=== PATIENT | female | born 1940 | race Caucasian/White ===

== ENCOUNTER → 2016-12-22 | Outpatient (CLI) | payer OTHER, MEDICARE ==
[~2016-12-22] MED LIST: ASPI1TAB83 PO; CALC600T9 PO; CALC625T PO; CIPR0.3S; EST1 PO; MULTTAB58 PO; NAPR220T40 PO; PRED1SUS3; PRED1SUS3 OPR
--- NOTE | 2016-12-22 13:22 | MAMMOGRAPHY REPORT ---
BILATERAL DIGITAL SCREENING MAMMOGRAM WITH CAD: 12/22/2016 CLINICAL HISTORY: Routine screening. Patient has no complaints. TECHNIQUE: Current study was also evaluated with a Computer Aided Detection (CAD) system. Bilateral CC and MLO views were obtained. COMPARISON: Comparison is made to exams dated: 12/21/2015 mammogram, 10/27/2013 mammogram, 10/24/2012 mamm ogram, 10/24/2011 mammogram, 10/20/2010 mammogram, and 10/19/2009 mammogram - [facility]. BREAST COMPOSITION: There are scattered areas of fibroglandular density in both breasts. FINDINGS: No suspicious masses, calcifications, or areas of architectural distortion are noted in ei ther breast. There has been no significant interval change compared to prior exams. A linear scar ma rker denotes a scar on the right upper outer breast. Architectural distortion in the right upper out er quadrant is stable and felt to represent postsurgical changes. A linear scar marker also denotes a scar on the left superior breast. A biopsy marker clip is again seen within the left upper outer q uadrant. Scattered bilateral benign-appearing calcifications are not significantly changed. IMPRESSION: ACR BI-RADS CATEGORY 2: BENIGN There is no mammographic evidence of malignancy. A 1 year screening mammogram is recommended. The pa tient will receive written notification of the results. Approximately 10% of breast cancers are not detected with mammography. A negative mammographic report should not delay biopsy if a clinically suggestive mass is present. Rosa Rome M.D. /:12/22/2016 12:38:06 [employer] Dyer: Nancy ARAMBULA(Reginald)(Amina), [facility] letter sent: Normal 1/2 BI-RADS Code: ACR BI-RADS Category 2: Benign
== END | disposition home or self-care (01) ==
LOC: C.MAMM 09:01
PROVIDERS: ATTEND Family Medicine
DX: Z12.31 Encounter for screening mammogram for malignant neoplasm of breast (principal)

== ENCOUNTER → 2017-09-26 | Outpatient (CLI) | payer OTHER, MEDICARE ==
--- NOTE | 2017-09-26 15:08 | MAMMOGRAPHY REPORT ---
UNILATERAL RIGHT DIGITAL DIAGNOSTIC MAMMOGRAM TOMOSYNTHESIS AND TARGETED RIGHT ULTRASOUND: 09/26/2017 CLINICAL HISTORY: 77-year-old woman with multiple prior benign right breast surgeries presents with a n area of thickening and pain in the right upper outer quadrant posteriorly. TECHNIQUE: Right breast CC and MLO 2D and tomosynthesis images; spot compression tomosynthesis right CC and MLO; right CC and MLO tomosynthesis images obtained after placement of a skin BB marker. COMPARISON: Comparison is made to exams dated: 11/26/2013 mammogram, 11/26/2013 ultrasound, 06/01/2014 ma mmogram, 06/01/2014 ultrasound, 12/14/2014 mammogram, and 12/14/2014 ultrasound - [facility]. BREAST COMPOSITION: The tissue of the right breast is heterogeneously dense, which may obscure small masses. FINDINGS: A linear scar marker overlies the upper outer middle one third of the right breast, denotin g areas of prior surgery. A triangular palpable marker overlies the superior posterior right breast on the MLO view, denoting the area of thickening and pain pointed out by the patient. There are a fe w morphologically normal lymph nodes projecting over the right pectoralis muscle in the area of palpa ble concern, which appears stable on numerous prior mammograms and are likely benign. There is a que stionable area of architectural distortion in the lateral, middle one third of the right breast on th e initial right CC view (tomosynthesis slice 17/57), for which additional spot compression tomosynthe sis views were obtained. This area partially effaces on the spot compression right CC tomosynthesis view but further evaluation with ultrasound was performed in the lateral right breast. Targeted ultrasound was performed in the lateral right breast and also in the area of thickening and pain pointed out by the patient. In the 9:00, 10:00 and 11:00 right breast in the areas of concern, there is sonographically normal tissue without evidence of a suspicious solid or cystic mass. In the 9:00 axis, 7 cm from the nipple, there is a hypoechoic and mixed echogenicity possible mass versus n ormal tissue measuring 4.6 x 4.5 x 6.5 mm. A BB was placed overlying this sonographic finding and re peat full field right CC and MLO tomosynthesis images were obtained. On the repeat views, the BB mar ker aligns with a focal asymmetry in the right upper outer middle one third of the breast that has be en present on numerous prior mammograms dating back to at least 2010 based on the MLO view, suggestin g benignity. IMPRESSION: ACR-BI-RADS CATEGORY 3: PROBABLY BENIGN, TARGETED ULTRASOUND ACR-BI-RADS CATEGORY 3: PRO BABLY BENIGN 1. There is no new suspicious mammographic or targeted sonographic abnormality in the 9:00 through 10 :00 axis of the right breast in the area of pain and thickening pointed out by the patient. Continue d clinical follow-up is recommended, as biopsy of a clinically suspicious mass should not be preclude d by negative imaging. 2. A questionable area of architectural distortion was identified in the lateral right breast on the CC view, not seen on the MLO view and not definitely present on the spot compression tomosynthesis v iews. Although this could represent normal overlapping vessels and fibrolinear markings, a short int erval follow-up right diagnostic tomosynthesis mammogram is recommended to ensure stability in 6 gorge hs. 3. While scanning in real-time ultrasound to assess for the area of distortion, a mixed echogenicity subcentimeter lesion was seen in the 9:00 right breast on ultrasound, which is thought to correlate with a stable mammographic asymmetry. Given stability dating back to at least 2010 this asymmetry is also likely benign but a short interval follow-up six-month diagnostic mammogram and targeted ultras ound is recommended to ensure stability. These results and recommendations were discussed with the patient at the time of the exam. She tenta tively scheduled the follow-up appointment prior to leaving our department. Approximately 10% of breast cancers are not detected with mammography. A negative mammographic report should not delay biopsy if a clinically suggestive mass is present. Miroslava Max M.D. ay/:09/26/2017 12:57:32 Clinic Scheduler: Kayleigh ARAMBULA(Reginald)(Amina), [facility] letter sent: Follow Up Recommended 3 BI-RADS Code: ACR-BI-RADS Category 3: Probably Benign Ultrasound BI-RADS: ACR-BI-RADS Category 3: Pr obably Benign
== END | disposition home or self-care (01) ==
LOC: C.MAMM 10:51
PROVIDERS: ATTEND Nurse Practitioner Family
DX: N63.10 Unspecified lump in the right breast, unspecified quadrant (principal)